=== PATIENT | male | born 1950 | race Caucasian/White ===

== ENCOUNTER 2019-03-10 09:15 | Inpatient (IN) | payer MEDICARE, OTHER ==
[~2019-03-10] VITALS: Ht 165.1 cm; Wt 69.5 kg
[~2019-03-10 09:15] MED LIST: CIPR500T4 PO; CITA20TA8 PO; CYCL10TA7 PO; HYDR-3498 PO; IBUP-1542 PO; MULT-552 PO; NAPR-985 PO; ONDA4TAB35 PO; TAMS0.4C2 PO
[2019-03-10] MEDS ORDERED: HYDROmorphONE 1 MG/ML SYG IV STA ×2 (10:03→12:53)
[2019-03-10] MEDS ORDERED: ONDANSETRON 4 MG INJ IV STA ×2 (10:03→12:53)
[2019-03-10] MEDS ORDERED: SOD CHLORIDE 0.9% 1,000 ML IV STA (10:03)
[2019-03-10] MEDS ORDERED: MORP15TA3 ORAL (11:01)
[2019-03-10] MEDS ORDERED: ACETAMINOPHEN 325 MG TAB PO PRN ×2 (14:30→17:30)
[2019-03-10] MEDS ORDERED: ONDANSETRON 4 MG INJ IV PRN (14:30)
[2019-03-10] MEDS ORDERED: HYDROmorphONE 2 MG/ML SYG IV STA (17:06)
--- NOTE | 2019-03-10 17:10 | HP ---
Date/Time of Note Date/Time of Note DATE: 03/10/19 TIME: 17:07 Assessment/Plan VTE Prophylaxis Pharmacological prophylaxis: LMWH Lines/Catheters IV Catheter Type (from Nrsg): Saline Lock Assessment/Plan Hospital Course 1. Intractable pain secondary to metastatic prostate cancer Continue home MS Contin 60 mg twice daily and will add Percocet and Dilaudid as needed Follow-up with oncologist as outpatient Prophylaxis: Lovenox Result Diagram: 03/10/19 1013 03/10/19 1013 Results 24hrs Laboratory Tests Test 03/10/19 10:13 03/10/19 10:58 White Blood Count 10.3 Red Blood Count 3.72 #L Hemoglobin 10.2 #L Hematocrit 31.7 #L Mean Corpuscular Volume 85.2 Mean Corpuscular Hemoglobin 27.4 L Mean Corpuscular Hemoglobin Concent 32.2 Red Cell Distribution Width 16.0 H Platelet Count 384 Mean Platelet Volume 9.0 Immature Granulocytes % 0.400 Neutrophils % 87.6 H Lymphocytes % 4.4 L Monocytes % 6.7 Eosinophils % 0.6 Basophils % 0.3 Nucleated Red Blood Cells % 0.0 Immature Granulocytes # 0.040 H Neutrophils # 9.0 H Lymphocytes # 0.5 L Monocytes # 0.7 Eosinophils # 0.1 Basophils # 0.0 Nucleated Red Blood Cells # 0.0 Absolute Reticulocyte Count 0.023 Percent Reticulocyte Count 0.6 Sodium Level 137 Potassium Level 4.5 Chloride Level 98 Carbon Dioxide Level 28 Anion Gap 11 Blood Urea Nitrogen 11 Creatinine 0.76 Est Glomerular Filtrat Rate mL/min > 60 Glucose Level 167 Calcium Level 10.0 Iron Level 21 L Total Iron Binding Capacity 283 Percent Iron Saturation 7 L Ferritin 139.0 Total Bilirubin 0.2 Direct Bilirubin 0.00 Indirect Bilirubin 0.2 Aspartate Amino Transf (AST/SGOT) 40 Alanine Aminotransferase (ALT/SGPT) 12 L Alkaline Phosphatase 226 H Lactate Dehydrogenase 556 Total Protein 7.5 Albumin 4.0 Globulin 3.50 H Albumin/Globulin Ratio 1.14 Prothrombin Time 14.4 Prothrombin Time Ratio 1.1 INR International Normalized Ratio 1.11 Activated Partial Thromboplast Time 38.4 H HPI/ROS Admit Date/Time Admit Date/Time March 10, 2019 Hx of Present Illness Patient is a 68-year-old male with a history of metastatic prostate cancer status post multiple rounds of therapy with no significant improvement. Patient has been told by his oncologist that they will monitor from now and potentially restart treatment in the future. Patient lives with his mom and has been nonambulatory for the past several weeks and presents with worsening diffuse body pain. Patient has been taking MS Contin 60 mg every 12 hours with no significant improvement in pain. Patient has no other complaints at this time. ROS Constitutional: no complaints, improved Eyes: no complaints ENT: no complaints Respiratory: no complaints Cardiovascular: no complaints Gastrointestinal: no complaints Genitourinary: no complaints Musculoskeletal: bone/joint pain Skin: no complaints Neurologic: no complaints Endocrine: no complaints Lymphatic: no complaints Psychological: no complaints, nl mood/affect Immunologic: no complaints PMH/Family/Social Past Medical History Metastatic prostate cancer Medications Current Medications Ondansetron HCl (Zofran Inj) 4 mg BRIDGE ORDER PRN IV NAUSEA/VOMITING; Start 03/10/19 at 14:30; Stop 03/11/19 at 14:29 Acetaminophen (Tylenol Tab) 650 mg ER BRIDGE PRN PO .MILD PAIN 1-3 OR TEMP; Start 03/10/19 at 14:30; Stop 03/11/19 at 14:29 Coded Allergies: tetracycline (Unverified Allergy, Unknown, RASH, 03/10/19) Past Surgical History Past Surgical Hx: no surgical history Family History Significant Family History: no pertinent family hx Social History Alcohol Use: rarely Smoking Status: Never smoker Drug Use: none Exam/Review of Systems Vital Signs Vitals Vital Signs Date Temp Pulse Resp B/P (MAP) Pulse Ox O2 O2 Flow FiO2 Time Delivery Rate 03/10/19 98.2 109 20 148/97 94 Room Air 15:28 (114) Exam Constitutional: alert, oriented Respiratory: clear to auscultation Cardiovascular: regular rate and rhythm Gastrointestinal: soft; No distended Musculoskeletal: nl extremities to inspection CATHY STEWART Mar 10, 2019 17:09
[2019-03-10] MEDS ORDERED: NACL 0.9% 3 ML SYG IV SCH (17:30)
[2019-03-10] MEDS ORDERED: ZOLPIDEM 5 MG TAB PO PRN (17:30)
[2019-03-10] MEDS ORDERED: OXYCODONE/ACETAMINOPHEN (10/325) TAB PO PRN (17:30)
[2019-03-10 18:02] VITALS: Ht 165.1 cm; Wt 69.5 kg
[2019-03-10 18:06] VITALS: BP 108/68; PULSE 98; RESP 17
[2019-03-10] MEDS: HYDROmorphONE 1 MG/ML SYG IV PRN (18:30)
[2019-03-10 20:26] VITALS: BP 112/68; PULSE 81; RESP 18
[2019-03-10] MEDS: morphine (ER) 30 MG TAB PO SCH (20:40)
[2019-03-10] MEDS: TAMSULOSIN (SR) 0.4 MG CAP PO SCH (20:40)
[2019-03-11] MEDS: HYDROmorphONE 1 MG/ML SYG IV PRN (00:42)
[2019-03-11] MEDS: ONDANSETRON 4 MG INJ IV PRN ×2 (00:44→21:00)
[2019-03-11] MEDS: MAGNESIUM HYDROXIDE 30ML CUP PO PRN ×2 (02:04→13:27)
[2019-03-11 02:19] VITALS: BP 109/68; PULSE 97; RESP 18
[2019-03-11 08:15] VITALS: BP 101/58; PULSE 95; RESP 18
[2019-03-11] MEDS: ENOXAPARIN 40 MG/0.4 ML SYG SC SCH (09:20)
[2019-03-11] MEDS: morphine (ER) 30 MG TAB PO SCH ×2 (09:21→21:00)
[2019-03-11] MEDS ORDERED: morphine (ER) 30 MG TAB PO SCH (13:30)
[2019-03-11 14:42] VITALS: BP 90/57; PULSE 92; RESP 18
--- NOTE | 2019-03-11 16:16 | PN ---
Date/Time of Note Date/Time of Note DATE: 03/11/19 TIME: 16:14 Assessment/Plan VTE Prophylaxis Risk score (from Nsg)>0 risk: 3 SCD applied (from Nsg): Yes Pharmacological prophylaxis: LMWH Lines/Catheters IV Catheter Type (from Nrsg): Saline Lock Assessment/Plan Hospital Course 1. Intractable pain secondary to metastatic prostate cancer Patient still with pain although improved, increase MS Contin frequency to every 8 hours Continue Percocet and Dilaudid as needed Palliative care consultation obtained manager community relations to arrange for walker and home health Continue PT Follow-up with oncologist as outpatient, patient would like to continue chemotherapy in the future Prophylaxis: Lovenox Result Diagram: 03/11/19 0621 03/11/19 0621 Results 24hrs Laboratory Tests Test 03/11/19 06:21 White Blood Count 8.9 Red Blood Count 3.32 L Hemoglobin 9.0 L Hematocrit 28.0 L Mean Corpuscular Volume 84.3 Mean Corpuscular Hemoglobin 27.1 L Mean Corpuscular Hemoglobin Concent 32.1 Red Cell Distribution Width 16.1 H Platelet Count 368 Mean Platelet Volume 9.3 Immature Granulocytes % 0.300 Neutrophils % 73.9 Lymphocytes % 10.6 L Monocytes % 12.1 H Eosinophils % 2.6 Basophils % 0.5 Nucleated Red Blood Cells % 0.0 Immature Granulocytes # 0.030 Neutrophils # 6.6 Lymphocytes # 0.9 Monocytes # 1.1 H Eosinophils # 0.2 Basophils # 0.0 Nucleated Red Blood Cells # 0.0 Sodium Level 133 L Potassium Level 4.3 Chloride Level 93 L Carbon Dioxide Level 30 Anion Gap 10 Blood Urea Nitrogen 9 Creatinine 0.66 Est Glomerular Filtrat Rate mL/min > 60 Glucose Level 107 # Calcium Level 9.3 Phosphorus Level 4.0 Magnesium Level 1.9 Subjective 24 Hr Interval Summary Musculoskeletal: bone/joint pain Exam/Review of Systems Exam Vitals Vital Signs Date Temp Pulse Resp B/P (MAP) Pulse Ox O2 O2 Flow FiO2 Time Delivery Rate 03/11/19 98.7 92 18 90/57 (68) 93 Room Air 14:42 Intake and Output 03/10/19 03/10/19 03/11/19 1515:00 23:00 07:00 IntakeIntake Total 400 ml 420 ml BalanceBalance 400 ml 420 ml Constitutional: alert, oriented Respiratory: clear to auscultation Cardiovascular: regular rate and rhythm Gastrointestinal: soft; No distended Musculoskeletal: nl extremities to inspection Results Results 24hrs Laboratory Tests Test 03/11/19 06:21 White Blood Count 8.9 Red Blood Count 3.32 L Hemoglobin 9.0 L Hematocrit 28.0 L Mean Corpuscular Volume 84.3 Mean Corpuscular Hemoglobin 27.1 L Mean Corpuscular Hemoglobin Concent 32.1 Red Cell Distribution Width 16.1 H Platelet Count 368 Mean Platelet Volume 9.3 Immature Granulocytes % 0.300 Neutrophils % 73.9 Lymphocytes % 10.6 L Monocytes % 12.1 H Eosinophils % 2.6 Basophils % 0.5 Nucleated Red Blood Cells % 0.0 Immature Granulocytes # 0.030 Neutrophils # 6.6 Lymphocytes # 0.9 Monocytes # 1.1 H Eosinophils # 0.2 Basophils # 0.0 Nucleated Red Blood Cells # 0.0 Sodium Level 133 L Potassium Level 4.3 Chloride Level 93 L Carbon Dioxide Level 30 Anion Gap 10 Blood Urea Nitrogen 9 Creatinine 0.66 Est Glomerular Filtrat Rate mL/min > 60 Glucose Level 107 # Calcium Level 9.3 Phosphorus Level 4.0 Magnesium Level 1.9 Medications Medication Current Medications IV Flush (NS 3 ml) 3 ml PER PROTOCOL IV ; Start 03/10/19 at 17:30 Ondansetron HCl (Zofran Inj) 4 mg Q6H PRN IV NAUSEA/VOMITING Last administered on 03/11/19at 00:44; Admin Dose 4 MG; Start 03/10/19 at 17:30 Acetaminophen (Tylenol Tab) 650 mg Q6H PRN PO .PAIN 1-3 OR TEMP Last administered on 03/10/19at 18:24; Admin Dose 650 MG; Start 03/10/19 at 17:30 Zolpidem Tartrate (Ambien) 5 mg QHS PRN PO .INSOMNIA; Start 03/10/19 at 17:30 Enoxaparin Sodium (Lovenox) 40 mg DAILY SC Last administered on 03/11/19at 09:20; Admin Dose 40 MG; Start 03/11/19 at 09:00 Oxycodone/ Acetaminophen (Endocet (10/ 325)) 1 tab Q4H PRN PO MODERATE PAIN LEVEL 4-6 Last administered on 03/11/19at 05:30; Admin Dose 1 TAB; Start 4/25/19 at 17:30 Hydromorphone HCl (Dilaudid) 1 mg Q4H PRN IV SEVERE PAIN LEVEL 7-10 Last administered on 03/11/19 00:42; Admin Dose 1 MG; Start 03/10/19 at 17:30 Tamsulosin HCl (Flomax) 0.4 mg HS PO Last administered on 03/10/19 20:40; Admin Dose 0.4 MG; Start 03/10/19 at 21:00 Magnesium Hydroxide (Milk Of Mag) 30 ml Q12 PRN PO CONSTIPATION Last administered on 03/11/19 13:27; Admin Dose 30 ML; Start 03/11/19 at 01:00 Morphine Sulfate (Ms Contin (Er)) 60 mg TID PO Last administered on 03/11/19 13:27; Admin Dose 60 MG; Start 03/11/19 at 13:30 CATHY STEWART Mar 11, 2019 16:16
[2019-03-11] MEDS: DEXAMETHASONE 10 MG/ML 1 ML INJ IV SCH ×2 (18:00→23:26)
[2019-03-11] MEDS ORDERED: ZOLEDRONIC ACID 4 MG in SOD CHLORIDE 0.9% 100 ML IVPB ONE (18:00)
[2019-03-11] MEDS ORDERED: HYDROmorphONE 0.2 MG/ML PCA IV SCH (18:00)
--- NOTE | 2019-03-11 18:00 | CONS ---
Assessment/Plan Assessment/Plan Assessment/Plan (Daily) Metastatic prostate cancer Metastasis to bones Malnutrition Pain [id number] Nausea vomiting possibly related to opioids Depression anxiety Because patient's pain is currently out of control it is some question whether or not oral opioids may be causing his emesis we will switch him over to [employer] Dilaudid this evening. We will give him 1 dose of 4 mg of IV Zometa start him off on nonsteroidal anti-inflammatory medications and Decadron for now anticipate tapering to p.o. medications beginning 1 to 2 days. Ideally he would be well controlled with methadone as an outpatient for bony metastasis however will discuss with Dr. Bermudez in more detail. Consultation Date/Type/Reason Admit Date/Time March 10, 2019 Date/Time of Note DATE: 03/11/19 TIME: 17:56 Hx of Present Illness This is a 68-year-old gentleman is a very poor historian who presents [facility] with a history of metastatic prostate cancer with bony mets with pain out of control. Patient describes his pain as excruciating bilat eral shoulders lumbosacral spine bilateral pelvic regions and bilateral lower extremities. Patient is been accelerating in intensity and then he is unclear as to how much morphine he was taking at home how much Lafe. However he states his pain became out of control and presented to [facility] describes his pain is 10/10 before he came to hospital he is still very uncomfortable at this time unable to ambulate without assistance. Pain is interfering with his physical functioning his mood and is sleeping pattern. Patient states he has been nauseous prior to hospitalization and vomiting during his hospitalization but is not sure whether not is from the morphine or from Per cocet. Patient denies constipation itching mental cloudiness sweating fatigue drowsiness he is not negotiating for higher dose of pain control medication. There is no history of purposeful oversedation he does not appear to be intoxicated unkempt he is uncomfortable on examination with minimal movement. He is not requesting for higher doses just reasonable control of his current pain accelerates with minimal movement. He has not asked for change in the route of administration there is no history of contact with street drugs. We have an incomplete database and so far as what chemotherapy he has been given in the past for last time he was administered chemotherapy. Constitutional: no complaints, improved Eyes: No no complaints, No pain, No discharge, No redness, No visual change, No other ENT: no complaints; No bleeding, No pain, No congestion, No discharge, No dysphagia, No sore throat, No other Respiratory: no complaints; No pain, No cough, No pleuritic pain, No shortness of breath, No sputum, No wheezing, No other Cardiovascular: no complaints; No chest pain, No edema, No lightheadedness, No orthopenea, No palpitations, No paroxysmal nocturnal dyspnea, No other Genitourinary: other (Refer to history of present illness) Musculoskeletal: other Neurologic: no complaints; No confusion, No dizziness, No focal-weakness, No headache, No syncope, No seizure, No other Psychological: anxiety, depression Past Medical History Medical History: cancer, other (History of prostate cancer with mets to the bone) Home Meds Active Scripts Ondansetron Hcl* (Zofran* ODT) 4 mg -ODT Tab.disper, 4 MG PO Q4H PRN for NAUSEA AND OR VOMITING, #20 TAB Prov:BRANDO DELCID MD 09/23/15 Reported Medications Morphine Sulfate (Morphine Sulfate ER) 15 Mg Tablet.er, 1 TAB ORAL BID 03/10/19 Multivitamins* (Once Daily*) 1 Tab Tablet, 1 TAB PO DAILY, TAB 09/23/15 Tamsulosin Hcl* (Tamsulosin Hcl*) 0.4 Mg Cap.er.24h, 0.4 MG PO HS, CAP 09/23/15 Discontinued Reported Medications Citalopram Hydrobromide* (Citalopram Hydrobromide*) 20 Mg Tablet, 20 MG PO QHS, TAB 09/23/15 Naproxen* (Naprosyn*) 500 Mg Tablet, 500 MG PO BID PRN for PAIN, TAB 09/23/15 Discontinued Scripts Cyclobenzaprine Hcl* (Cyclobenzaprine Hcl*) 10 Mg Tablet, 10 MG PO TID, #15 TAB Prov:MAHESH SOUZA DO 02/11/16 Ibuprofen* (Motrin*) 600 Mg Tab, 600 MG PO Q8, #14 TAB Prov:MAHESH SOUZA DO 02/11/16 Hydrocodone Bit-Acetaminophen* (Lafe*) 5-325 Mg Tab, 1 TAB PO Q6 PRN for PAIN, #7 TAB Prov:MAHESH SOUZA DO 02/11/16 Ciprofloxacin Hcl* (Ciprofloxacin Hcl*) 500 Mg Tablet, 500 MG PO BID for 10 Days, TAB Prov:BRANDO DELCID MD 09/23/15 Medications Current Medications IV Flush (NS 3 ml) 3 ml PER PROTOCOL IV ; Start 03/10/19 at 17:30 Ondansetron HCl (Zofran Inj) 4 mg Q6H PRN IV NAUSEA/VOMITING Last administered on 03/11/19 00:44; Admin Dose 4 MG; Start 03/10/19 at 17:30 Acetaminophen (Tylenol Tab) 650 mg Q6H PRN PO .PAIN 1-3 OR TEMP Last administered on 03/10/19 18:24; Admin Dose 650 MG; Start 03/10/19 at 17:30 Zolpidem Tartrate (Ambien) 5 mg QHS PRN PO .INSOMNIA; Start 03/10/19 at 17:30 Enoxaparin Sodium (Lovenox) 40 mg DAILY SC Last administered on 03/11/19 09:20; Admin Dose 40 MG; Start 03/11/19 at 09:00 Oxycodone/ Acetaminophen (Endocet (10/ 325)) 1 tab Q4H PRN PO MODERATE PAIN LEVEL 4-6 Last administered on 03/11/19 05:30; Admin Dose 1 TAB; Start 03/10/19 at 17:30 Hydromorphone HCl (Dilaudid) 1 mg Q4H PRN IV SEVERE PAIN LEVEL 7-10 Last administered on 03/11/19 00:42; Admin Dose 1 MG; Start 03/10/19 at 17:30 Tamsulosin HCl (Flomax) 0.4 mg HS PO Last administered on 03/10/19 20:40; Admin Dose 0.4 MG; Start 03/10/19 at 21:00 Magnesium Hydroxide (Milk Of Mag) 30 ml Q12 PRN PO CONSTIPATION Last ad ministered on 03/11/19 13:27; Admin Dose 30 ML; Start 03/11/19 at 01:00 Morphine Sulfate (Ms Contin (Er)) 60 mg TID PO Last administered on 03/11/19 13:27; Admin Dose 60 MG; Start 03/11/19 at 13:30 Allergies: Coded Allergies: tetracycline (Unverified Allergy, Unknown, RASH, 03/10/19) Past Surgical History Past Surgical Hx: no surgical history Social History Alcohol Use: rarely Smoking Status: Never smoker Drug Use: none Exam/Review of Systems Exam Vitals Vital Signs Date Temp Pulse Resp B/P (MAP) Pulse Ox O2 O2 Flow FiO2 Time Delivery Rate 03/11/19 98.7 92 18 90/57 (68) 93 Room Air 14:42 Intake and Output 03/10/19 03/10/19 03/11/19 1515:00 23:00 07:00 IntakeIntake Total 400 ml 420 ml BalanceBalance 400 ml 420 ml Constitutional: alert, oriented, well developed, distress, frail Psych: anxiety Head: normocephalic, atraumatic; No lacerations, No hematomas, No other Eyes: nl conjunctiva, EOMI, nl lids, nl sclera, PERRL; No icteric, No fundi, disc, No other ENMT: nl external ears & nose, nl lips & teeth, nl nasal mucosa & septum Neck: supple, non-tender; No jvd, No bruits, No masses, No thyromegaly, No nuchal rigidity, No other Respiratory: clear to auscultation, normal air movement; No congested cough, No crackles/rales, No diminished breath sounds, No intercostal retraction, No labored breathing, No respirations, No tactile fremitus, No wheezing, No other Cardiovascular: regular rate and rhythm, nl pulses; No bruits, No diastolic murmur, No edema, No gallop, No irregular rhythm, No jugular venous distention (JVD), No murmurs/extra sounds, No rub, No systolic murmur, No S3, No S4, No other Neurological: [employer] II-XII intact, nl mental status, nl speech, nl strength; No confused, No DTR's symmetric, No focal weakness, No lethargic, No numbness, No reflexes, No unresponsive, No other Results Result Diagram: 03/11/1962003/11/19620 Results 24hrs Laboratory Tests Test 03/11/19 06:21 White Blood Count 8.9 Red Blood Count 3.32 L Hemoglobin 9.0 L Hematocrit 28.0 L Mean Corpuscular Volume 84.3 Mean Corpuscular Hemoglobin 27.1 L Mean Corpuscular Hemoglobin Concent 32.1 Red Cell Distribution Width 16.1 H Platelet Count 368 Mean Platelet Volume 9.3 Immature Granulocytes % 0.300 Neutrophils % 73.9 Lymphocytes % 10.6 L Monocytes % 12.1 H Eosinophils % 2.6 Basophils % 0.5 Nucleated Red Blood Cells % 0.0 Immature Granulocytes # 0.030 Neutrophils # 6.6 Lymphocytes # 0.9 Monocytes # 1.1 H Eosinophils # 0.2 Basophils # 0.0 Nucleated Red Blood Cells # 0.0 Sodium Level 133 L Potassium Level 4.3 Chloride Level 93 L Carbon Dioxide Level 30 Anion Gap 10 Blood Urea Nitrogen 9 Creatinine 0.66 Est Glomerular Filtrat Rate mL/min > 60 Glucose Level 107 # Calcium Level 9.3 Phosphorus Level 4.0 Magnesium Level 1.9 Medications Medication Current Medications IV Flush (NS 3 ml) 3 ml PER PROTOCOL IV ; Start 03/10/19 at 17:30 Ondansetron HCl (Zofran Inj) 4 mg Q6H PRN IV NAUSEA/VOMITING Last administered on 03/11/19at 00:44; Admin Dose 4 MG; Start 03/10/19 at 17:30 Acetaminophen (Tylenol Tab) 650 mg Q6H PRN PO .PAIN 1-3 OR TEMP Last administered on 03/10/19 18:24; Admin Dose 650 MG; Start 03/10/19 at 17:30 Zolpidem Tartrate (Ambien) 5 mg QHS PRN PO .INSOMNIA; Start 03/10/19 at 17:30 Enoxaparin Sodium (Lovenox) 40 mg DAILY SC Last administered on 03/11/19 09:20; Admin Dose 40 MG; Start 03/11/19 at 09:00 Oxycodone/ Acetaminophen (Endocet (10/ 325)) 1 tab Q4H PRN PO MODERATE PAIN LEVEL 4-6 Last administered on 03/11/19 05:30; Admin Dose 1 TAB; Start 03/10/19 at 17:30 Hydromorphone HCl (Dilaudid) 1 mg Q4H PRN IV SEVERE PAIN LEVEL 7-10 Last administered on 03/11/19 00:42; Admin Dose 1 MG; Start 03/10/19 at 17:30 Tamsulosin HCl (Flomax) 0.4 mg HS PO Last administered on 4/25/19at 20:40; Admin Dose 0.4 MG; Start 03/10/19 at 21:00 Magnesium Hydroxide (Milk Of Mag) 30 ml Q12 PRN PO CONSTIPATION Last administered on 03/11/19at 13:27; Admin Dose 30 ML; Start 03/11/19 at 01:00 Morphine Sulfate (Ms Contin (Er)) 60 mg TID PO Last administered on 03/11/19at 13:27; Admin Dose 60 MG; Start 03/11/19 at 13:30 ELIN PATTON Mar 11, 2019 18:00
[2019-03-11] MEDS ORDERED: HYDROmorphONE 1 MG/ML SYG IV PRN (19:00)
[2019-03-11] MEDS: ACETAMINOPHEN 1000MG/100ML IV 100 ML IVPB SCH ×2 (19:03→23:34)
[2019-03-11 20:15] VITALS: BP 103/68; PULSE 101; RESP 20
[2019-03-11] MEDS ORDERED: morphine (ER) 15 MG TAB PO SCH (21:00)
[2019-03-11] MEDS: TAMSULOSIN (SR) 0.4 MG CAP PO SCH (23:15)
[2019-03-12] MEDS: ACETAMINOPHEN 1000MG/100ML IV 100 ML IVPB SCH ×2 (05:35→13:57)
[2019-03-12] MEDS: DEXAMETHASONE 10 MG/ML 1 ML INJ IV SCH ×3 (05:35→17:24)
[2019-03-12 07:55] VITALS: BP 102/64; PULSE 74; RESP 16
[2019-03-12] MEDS: morphine (ER) 30 MG TAB PO SCH ×3 (09:05→20:58)
[2019-03-12] MEDS: ONDANSETRON 4 MG INJ IV PRN (09:06)
[2019-03-12] MEDS: ENOXAPARIN 40 MG/0.4 ML SYG SC SCH (09:06)
--- NOTE | 2019-03-12 12:31 | PN ---
Date/Time of Note Date/Time of Note DATE: 03/12/19 TIME: 12:30 Assessment/Plan VTE Prophylaxis Risk score (from Nsg)>0 risk: 5 SCD applied (from Nsg): Yes Pharmacological prophylaxis: LMWH Lines/Catheters IV Catheter Type (from Nrsg): Peripheral IV Assessment/Plan Hospital Course 1. Intractable pain secondary to metastatic prostate cancer Patient still with pain although improved, increased MS Contin frequency to every 8 hours Continue Dilaudid as needed Palliative care consultation appreciated, patient started on Decadron job analysis manager to arrange for walker and home health Continue PT Follow-up with oncologist as outpatient, patient would like to continue chemotherapy in the future 2. Intractable nausea and vomiting possibly secondary to opiates Zofran as needed Monitor Prophylaxis: Lovenox DC planning: Patient not stable for DC as he continues to have nausea and vomiting Result Diagram: 03/11/1962003/11/19620 Subjective 24 Hr Interval Summary Gastrointestinal: nausea, vomiting Musculoskeletal: bone/joint pain Exam/Review of Systems Exam Vitals Vital Signs Date Temp Pulse Resp B/P (MAP) Pulse Ox O2 O2 Flow FiO2 Time Delivery Rate 03/12/19 98.2 74 16 102/64 93 07:55 (77) 03/11/19 Room Air 14:42 Intake and Output 03/11/19 03/11/19 03/12/19 1515:00 23:00 07:00 IntakeIntake Total 580 ml 300 ml 555 ml OutputOutput Total 150 ml 2 ml BalanceBalance 430 ml 300 ml 553 ml Constitutional: alert, oriented Respiratory: clear to auscultation Cardiovascular: regular rate and rhythm Gastrointestinal: soft; No distended Musculoskeletal: nl extremities to inspection Medications Medication Current Medications IV Flush (NS 3 ml) 3 ml PER PROTOCOL IV ; Start 03/10/19 at 17:30 Ondansetron HCl (Zofran Inj) 4 mg Q6H PRN IV NAUSEA/VOMITING Last administered on 03/12/19at 09:06; Admin Dose 4 MG; Start 03/10/19 at 17:30 Zolpidem Tartrate (Ambien) 5 mg QHS PRN PO .INSOMNIA; Start 03/10/19 at 17:30 Enoxaparin Sodium (Lovenox) 40 mg DAILY SC Last administered on 03/12/19at 09:06; Admin Dose 40 MG; Start 03/11/19 at 09:00 Tamsulosin HCl (Flomax) 0.4 mg HS PO Last administered on 03/11/19at 23:15; Admin Dose 0.4 MG; Start 03/10/19 at 21:00 Magnesium Hydroxide (Milk Of Mag) 30 ml Q12 PRN PO CONSTIPATION Last administered on 03/11/19at 13:27; Admin Dose 30 ML; Start 03/11/19 at 01:00 Dexamethasone (Decadron) 6 mg Q6 IV Last administered on 03/12/19 05:35; Admin Dose 6 MG; Start 03/11/19 at 18:00 Acetaminophen 100 ml @ 400 mls/hr Q6H IVPB Last administered on 03/12/19 05:35; Admin Dose 400 MLS/HR; Start 03/11/19 at 18:00; Stop 03/12/19 at 17:59 Morphine Sulfate (Ms Contin (Er)) 60 mg TID PO Last administered on 03/12/19 09:05; Admin Dose 60 MG; Start 03/11/19 at 21:00 Hydromorphone HCl (Dilaudid) 1 mg Q3H PRN IV SEVERE PAIN LEVEL 7-10 Last administered on 03/11/19 21:17; Admin Dose 1 MG; Start 03/11/19 at 19:00 CATHY STEWART Mar 12, 2019 12:31
[2019-03-12 14:30] VITALS: BP 103/72; PULSE 77; RESP 16
[2019-03-12 20:00] VITALS: BP 101/66; PULSE 70; RESP 18
[2019-03-12] MEDS: TAMSULOSIN (SR) 0.4 MG CAP PO SCH (20:58)
[2019-03-13] MEDS: DEXAMETHASONE 10 MG/ML 1 ML INJ IV SCH ×5 (00:05→23:51)
[2019-03-13] MEDS: MAGNESIUM HYDROXIDE 30ML CUP PO PRN ×2 (00:13→20:21)
[2019-03-13 02:00] VITALS: BP 103/63; PULSE 66; RESP 17
[2019-03-13 08:18] VITALS: BP 92/59; PULSE 67; RESP 16
[2019-03-13] MEDS: morphine (ER) 30 MG TAB PO SCH ×3 (09:44→20:21)
[2019-03-13] MEDS: ENOXAPARIN 40 MG/0.4 ML SYG SC SCH (09:45)
--- NOTE | 2019-03-13 13:18 | PN ---
Date/Time of Note Date/Time of Note DATE: 03/13/19 TIME: 13:15 Assessment/Plan VTE Prophylaxis Risk score (from Nsg)>0 risk: 5 SCD applied (from Nsg): Yes Pharmacological prophylaxis: LMWH Lines/Catheters IV Catheter Type (from Nrsg): Saline Lock Assessment/Plan Hospital Course 1. Intractable pain secondary to metastatic prostate cancer Patient still with pain although improved, have increased MS Contin frequency to every 8 hours Transition off Dilaudid IV, have started Percocet as needed for severe pain and Dilaudid only for breakthrough Patient will likely be discharged tomorrow with MS Contin 60 3 times daily and Percocet as needed if able to get off Dilaudid Palliative care consultation appreciated, patient started on Decadron manager occupational to arrange for walker and home health Continue PT Follow-up with oncologist as outpatient, patient would like to continue chemotherapy in the future 2. Intractable nausea and vomiting possibly secondary to opiates-improved Zofran as needed Monitor Prophylaxis: Lovenox DC planning: Attempts to wean off Dilaudid IV today, have added Percocet in wendy tion to his MS Contin, anticipate DC to home tomorrow with MS Contin 60 mg 3 times daily and Percocet Result Diagram: 03/11/19 0621 03/13/19 0540 Results 24hrs Laboratory Tests Test 03/13/19 05:40 Sodium Level 133 L Potassium Level 4.5 Chloride Level 94 L Carbon Dioxide Level 30 Anion Gap 9 Blood Urea Nitrogen 16 Creatinine 0.57 L Est Glomerular Filtrat Rate mL/min > 60 Glucose Level 151 Calcium Level 8.5 Phosphorus Level 3.2 Magnesium Level 2.7 H Subjective 24 Hr Interval Summary Musculoskeletal: bone/joint pain Exam/Review of Systems Exam Vitals Vital Signs Date Temp Pulse Resp B/P (MAP) Pulse Ox O2 O2 Flow FiO2 Time Delivery Rate 03/13/19 97.6 67 16 92/59 (70) 97 08:18 03/11/19 Room Air 14:42 Intake and Output 03/12/19 03/12/19 03/13/19 1515:00 23:00 07:00 IntakeIntake Total 100 ml 900 ml 240 ml OutputOutput Total 501 ml 500 ml BalanceBalance 100 ml 399 ml -260 ml Constitutional: alert, oriented Respiratory: clear to auscultation Cardiovascular: regular rate and rhythm Gastrointestinal: soft; No distended Musculoskeletal: nl extremities to inspection Results Results 24hrs Laboratory Tests Test 03/13/19 05:40 Sodium Level 133 L Potassium Level 4.5 Chloride Level 94 L Carbon Dioxide Level 30 Anion Gap 9 Blood Urea Nitrogen 16 Creatinine 0.57 L Est Glomerular Filtrat Rate mL/min > 60 Glucose Level 151 Calcium Level 8.5 Phosphorus Level 3.2 Magnesium Level 2.7 H Medications Medication Current Medications IV Flush (NS 3 ml) 3 ml PER PROTOCOL IV ; Start 03/10/19 at 17:30 Ondansetron HCl (Zofran Inj) 4 mg Q6H PRN IV NAUSEA/VOMITING Last administered on 03/12/19 09:06; Admin Dose 4 MG; Start 03/10/19 at 17:30 Zolpidem Tartrate (Ambien) 5 mg QHS PRN PO .INSOMNIA Last administered on 03/13/19 00:05; Admin Dose 5 MG; Start 03/10/19 at 17:30 Enoxaparin Sodium (Lovenox) 40 mg DAILY SC Last administered on 03/13/19 09:45; Admin Dose 40 MG; Start 03/11/19 at 09:00 Tamsulosin HCl (Flomax) 0.4 mg HS PO Last administered on 03/12/19 20:58; Admin Dose 0.4 MG; Start 03/10/19 at 21:00 Magnesium Hydroxide (Milk Of Mag) 30 ml Q12 PRN PO CONSTIPATION Last administered on 03/13/19 00:13; Admin Dose 30 ML; Start 03/11/19 at 01:00 Dexamethasone (Decadron) 6 mg Q6 IV Last administered on 03/13/19 05:38; Admin Dose 6 MG; Start 03/11/19 at 18:00 Morphine Sulfate (Ms Contin (Er)) 60 mg TID PO Last administered on 03/13/19 09:44; Admin Dose 60 MG; Start 03/11/19 at 21:00 Hydromorphone HCl (Dilaudid) 1 mg Q3H PRN IV SEVERE PAIN LEVEL 7-10 Last administered on 03/11/19 21:17; Admin Dose 1 MG; Start 03/11/19 at 19:00 CATHY STEWART Mar 13, 2019 13:18
[2019-03-13] MEDS ORDERED: HYDROmorphONE 1 MG/ML SYG IV PRN (13:30)
[2019-03-13] MEDS ORDERED: OXYCODONE/ACETAMINOPHEN (5/325) TAB PO PRN (13:30)
[2019-03-13 14:30] VITALS: BP 101/67; PULSE 73; RESP 16
[2019-03-13 20:00] VITALS: BP 97/64; PULSE 71; RESP 17
[2019-03-13] MEDS: TAMSULOSIN (SR) 0.4 MG CAP PO SCH (20:21)
[2019-03-14 02:00] VITALS: BP 101/65; PULSE 64; RESP 17
[2019-03-14] MEDS: DEXAMETHASONE 10 MG/ML 1 ML INJ IV SCH ×3 (05:36→18:06)
[2019-03-14 08:33] VITALS: BP 115/70; PULSE 68; RESP 18
[2019-03-14] MEDS: morphine (ER) 30 MG TAB PO SCH ×3 (08:39→20:31)
[2019-03-14] MEDS: ENOXAPARIN 40 MG/0.4 ML SYG SC SCH (08:40)
[2019-03-14 15:04] VITALS: BP 102/57; PULSE 74; RESP 19
--- NOTE | 2019-03-14 15:52 | PN ---
Date/Time of Note Date/Time of Note DATE: 03/14/19 TIME: 15:47 Assessment/Plan VTE Prophylaxis Risk score (from Nsg)>0 risk: 5 SCD applied (from Nsg): Yes Pharmacological prophylaxis: heparin Lines/Catheters IV Catheter Type (from Nrsg): Saline Lock Assessment/Plan Hospital Course 68 yo male with metastatic prostate cancer admitted for pain control - pain controlled on current regimen - dc home tomorrow with PO meds Rx Result Diagram: 03/11/19 0621 03/13/19 0540 Subjective 24 Hr Interval Summary Free Text/Dictation Pain is controlled Offered discharge but he is not wanting to go home yet Exam/Review of Systems Exam Vitals Vital Signs Date Temp Pulse Resp B/P (MAP) Pulse Ox O2 O2 Flow FiO2 Time Delivery Rate 03/14/19 96.8 74 19 102/57 92 15:04 (72) 03/11/19 Room Air 14:42 Intake and Output 03/13/19 03/13/19 03/14/19 1515:00 23:00 07:00 IntakeIntake Total 1480 ml 200 ml 700 ml OutputOutput Total 700 ml BalanceBalance 1480 ml 200 ml 0 ml Medications Medication Current Medications IV Flush (NS 3 ml) 3 ml PER PROTOCOL IV ; Start 03/10/19 at 17:30 Ondansetron HCl (Zofran Inj) 4 mg Q6H PRN IV NAUSEA/VOMITING Last administered on 03/12/19 09:06; Admin Dose 4 MG; Start 03/10/19 at 17:30 Zolpidem Tartrate (Ambien) 5 mg QHS PRN PO .INSOMNIA Last administered on 03/13/19at 00:05; Admin Dose 5 MG; Start 03/10/19 at 17:30 Enoxaparin Sodium (Lovenox) 40 mg DAILY SC Last administered on 03/14/19 08:40; Admin Dose 40 MG; Start 03/11/19 at 09:00 Tamsulosin HCl (Flomax) 0.4 mg HS PO Last administered on 03/13/19 20:21; Admin Dose 0.4 MG; Start 03/10/19 at 21:00 Magnesium Hydroxide (Milk Of Mag) 30 ml Q12 PRN PO CONSTIPATION Last administered on 03/13/19 20:21; Admin Dose 30 ML; Start 03/11/19 at 01:00 Dexamethasone (Decadron) 6 mg Q6 IV Last administered on 03/14/19at 11:47; Admin Dose 6 MG; Start 03/11/19 at 18:00 Morphine Sulfate (Ms Contin (Er)) 60 mg TID PO Last administered on 03/14/19at 12:31; Admin Dose 60 MG; Start 03/11/19 at 21:00 Hydromorphone HCl (Dilaudid) 1 mg Q4 PRN IV BREAKTHROUGH PAIN; Start 03/13/19 at 13:30 Oxycodone/ Acetaminophen (Percocet (5/ 325)) 1 tab Q4H PRN PO MODERATE PAIN LEVEL 4-6; Start 03/13/19 at 13:30 HERLINDA MAURICE MD Mar 14, 2019 15:52
[2019-03-14] MEDS: MAGNESIUM HYDROXIDE 30ML CUP PO PRN (16:34)
[2019-03-14] MEDS: TAMSULOSIN (SR) 0.4 MG CAP PO SCH (20:31)
[2019-03-14 20:36] VITALS: BP 112/71; PULSE 63; RESP 16
[2019-03-15] MEDS: DEXAMETHASONE 10 MG/ML 1 ML INJ IV SCH ×3 (01:19→12:44)
[2019-03-15 02:08] VITALS: BP 114/72; PULSE 59; RESP 16
[2019-03-15 08:26] VITALS: BP 118/77; PULSE 65; RESP 18
[2019-03-15] MEDS: morphine (ER) 30 MG TAB PO SCH ×2 (09:30→12:44)
[2019-03-15] MEDS: MAGNESIUM HYDROXIDE 30ML CUP PO PRN (09:30)
[2019-03-15] MEDS: ENOXAPARIN 40 MG/0.4 ML SYG SC SCH (09:31)
--- NOTE | 2019-03-15 14:23 | DS ---
Date/Time of Note Date/Time of Note DATE: 03/15/19 TIME: 14:22 Discharge Summary Admission/Discharge Info Admit Date/Time Mar 12, 2019 at 12:29 Discharge Date/Time Discharge Diagnosis Metastatic prostate cancer Patient Condition: Stable Hospital Course 68 yo male with metastatic prostate cancer admitted for pain control - pain controlled with PO MS Contin - Dexamethasone was given - He was discharged on MS Contin and 7 days of prednisone. He will follow up with his oncologist at [facility] Meds Reported Medications Tamsulosin Hcl* (Tamsulosin Hcl*) 0.4 Mg Cap.er.24h, 0.4 MG PO HS, CAP 09/23/15 Discontinued Reported Medications Morphine Sulfate (Morphine Sulfate ER) 15 Mg Tablet.er, 1 TAB ORAL BID 03/10/19 Multivitamins* (Once Daily*) 1 Tab Tablet, 1 TAB PO DAILY, TAB 09/23/15 Citalopram Hydrobromide* (Citalopram Hydrobromide*) 20 Mg Tablet, 20 MG PO QHS, TAB 09/23/15 Naproxen* (Naprosyn*) 500 Mg Tablet, 500 MG PO BID PRN for PAIN, TAB 09/23/15 Discontinued Scripts Ondansetron Hcl* (Zofran* ODT) 4 mg -ODT Tab.disper, 4 MG PO Q4H PRN for NAUSEA AND OR VOMITING, #20 TAB Prov:BRANDO DELCID MD 09/23/15 Cyclobenzaprine Hcl* (Cyclobenzaprine Hcl*) 10 Mg Tablet, 10 MG PO TID, #15 TAB Prov:MAHESH SOUZA DO 02/11/16 Ibuprofen* (Motrin*) 600 Mg Tab, 600 MG PO Q8, #14 TAB Prov:MAHESH SOUZA DO 02/11/16 Hydrocodone Bit-Acetaminophen* ([place]*) 5-325 Mg Tab, 1 TAB PO Q6 PRN for PAIN, #7 TAB Prov:MAHESH SOUZA DO 02/11/16 Ciprofloxacin Hcl* (Ciprofloxacin Hcl*) 500 Mg Tablet, 500 MG PO BID for 10 Days, TAB Prov:BRANDO DELCID MD 09/23/15 Primary Care Provider Not On Staff Doctor HERLINDA MAURICE MD Mar 15, 2019 14:23
--- NOTE | 2019-03-21 06:14 | ERD ---
ER Documentation Chief Complaint Chief Complaint GENERALIZED PAIN, TAKES MORPHINE AT HOME DIDN'T TAKE ANY SINCE LAST NIGHT HPI This is a 68-year-old male who presented to the emergency department with generalized pain and weakness. The patient has a history of metastatic prostate carcinoma. Indicates that he normally takes morphine at home. Indicates however he has not taken morphine for the past 12 hours as he ran out of his medications. He has had a decrease in appetite. He denies any abdominal pain. He has no chest pain. He has no shortness of breath at rest or exertion. He denies any hemoptysis hematemesis or melanotic stools. He denies any shortness of breath at rest or exertion ROS All systems reviewed and are negative except as per history of present illness. Medications Home Meds Reported Medications Tamsulosin Hcl* (Tamsulosin Hcl*) 0.4 Mg Cap.er.24h, 0.4 MG PO HS, CAP 09/23/15 Discontinued Reported Medications Morphine Sulfate (Morphine Sulfate ER) 15 Mg Tablet.er, 1 TAB ORAL BID 03/10/19 Multivitamins* (Once Daily*) 1 Tab Tablet, 1 TAB PO DAILY, TAB 09/23/15 Discontinued Scripts Ondansetron Hcl* (Zofran* ODT) 4 mg -ODT Tab.disper, 4 MG PO Q4H PRN for NAUSEA AND OR VOMITING, #20 TAB Prov:BRANDO DELCID MD 09/23/15 Allergies Allergies: Coded Allergies: tetracycline (Unverified Allergy, Unknown, RASH, 03/10/19) PMhx/Soc History of Surgery: No Anesthesia Reaction: No Hx Neurological Disorder: No Hx Respiratory Disorders: No Hx Cardiac Disorders: No (High Cholestrol) Hx Psychiatric Problems: No Hx Miscellaneous Medical Probl: No Hx Alcohol Use: No Hx Substance Use: No Hx Tobacco Use: No Smoking Status: Never smoker Physical Exam Physical Exam Constitutional:Well-developed. Well-nourished. HEENT:Normocephalic. Atraumatic.Pupils were equal round reactive to light. Moist mucous membranes.No tonsillar exudates. Conjunctival pallor Neck: No nuchal rigidity. No lymphadenopathy. No posterior cervical spine tenderness or step-offs. Respiratory: Not using accessory muscles of respiration.Lungs were clear to auscultation bilaterally. No rhonchi. No rales. No wheezing. Cardiovascular: Regular rate regular rhythm.No murmurs. No rubs were appreciated.S1, S2 normal. Distal pulses are palpable 2+ bilaterally. GI: Abdomen was soft. Nontender. Non Distended. No pulsatile abdominal masses or bruits. No rebound. No guarding. Bowel sounds were present and normal. Muscle skeletal: Full range of motion of both the upper and lower extremities bilaterally.Normal muscle tone.No assymetrical calf tenderness or swelling. Skin: Diffuse pallor. No petechia, no purpura. No lesions on the palms or the soles of the feet. No maculopapular rash. NEURO: Patient was alert, awake, orientated x3.No facial droop. Gait observed and normal with no ataxia.Speech had regular rate and rhythm. No focal neurological deficits. Results 24 hrs Laboratory Tests Test 03/10/19 10:13 03/10/19 10:58 White Blood Count 10.3 10^3/ul Red Blood Count 3.72 10^6/ul Hemoglobin 10.2 g/dl Hematocrit 31.7 % Mean Corpuscular Volume 85.2 fl Mean Corpuscular Hemoglobin 27.4 pg Mean Corpuscular Hemoglobin Concent 32.2 g/dl Red Cell Distribution Width 16.0 % Platelet Count 384 10^3/UL Mean Platelet Volume 9.0 fl Immature Granulocytes % 0.400 % Neutrophils % 87.6 % Lymphocytes % 4.4 % Monocytes % 6.7 % Eosinophils % 0.6 % Basophils % 0.3 % Nucleated Red Blood Cells % 0.0 /100WBC Immature Granulocytes # 0.040 10^3/ul Neutrophils # 9.0 10^3/ul Lymphocytes # 0.5 10^3/ul Monocytes # 0.7 10^3/ul Eosinophils # 0.1 10^3/ul Basophils # 0.0 10^3/ul Nucleated Red Blood Cells # 0.0 10^3/ul Absolute Reticulocyte Count 0.023 X10^6 Percent Reticulocyte Count 0.6 % Sodium Level 137 mmol/L Potassium Level 4.5 mmol/L Chloride Level 98 mmol/L Carbon Dioxide Level 28 mmol/L Anion Gap 11 Blood Urea Nitrogen 11 mg/dl Creatinine 0.76 mg/dl Est Glomerular Filtrat Rate mL/min > 60 mL/min Glucose Level 167 mg/dl Calcium Level 10.0 mg/dl Iron Level 21 ug/dl Total Iron Binding Capacity 283 ug/dl Percent Iron Saturation 7 % SAT Ferritin 139.0 ng/ml Total Bilirubin 0.2 mg/dl Direct Bilirubin 0.00 mg/dl Indirect Bilirubin 0.2 mg/dl Aspartate Amino Transf (AST/SGOT) 40 IU/L Alanine Aminotransferase (ALT/SGPT) 12 IU/L Alkaline Phosphatase 226 IU/L Lactate Dehydrogenase 556 IU/L Total Protein 7.5 g/dl Albumin 4.0 g/dl Globulin 3.50 g/dl Albumin/Globulin Ratio 1.14 Prothrombin Time 14.4 Sec Prothrombin Time Ratio 1.1 INR International Normalized Ratio 1.11 Activated Partial Thromboplast Time 38.4 Sec Transferrin 190 mg/dL Current Medications Medications Dose Sig/Kendall Start Time Status Last (Trade) Ordered Route PRN Stop Time Admin Dose Reason Admin Sodium 1,000 ml @ Q1H STAT 03/10/19 DC 03/10/19 Chloride 1,000 mls/hr IV 10:03 10:36 03/10/19 11:02 1 mg ONCE STAT 03/10/19 DC 03/10/19 Hydromorphone IV 10:03 10:37 HCl 03/10/19 10:08 (Dilaudid) Ondansetron 4 mg ONCE STAT 03/10/19 DC 03/10/19 HCl (Zofran IV 10:03 10:37 Inj) 03/10/19 10:08 1 mg ONCE STAT 03/10/19 DC 03/10/19 Hydromorphone IV 12:53 13:00 HCl 03/10/19 12:54 (Dilaudid) Ondansetron 4 mg ONCE STAT 03/10/19 DC HCl (Zofran IV 12:53 Inj) 03/10/19 12:54 Procedures/MDM This 68-year-old male with a history of metastatic prostate cancer. The patient was placed on a air sampling and monitoring continuous pulse oximetry and IV access was established by nursing staff. The patient had diffuse pallor however the patient's hemoglobin was 10.2. The patient was typed and crossed. The patient received intravenous morphine and Zofran but his pain had not improved. I obtained a chest radiograph reviewed by the radiologist myself and indicate the followin. The cardiovascular silhouette is stable and unremarkable. 2. Increasing discoid atelectasis within the right lower lung zone and persistent discoid atelectasis in the left lower lung zone. No effusion or pneumothorax is evident. 3. Increased sclerosis is again noted within the proximal left humerus for which blastic metastasis cannot be excluded. Observation Note: Time: 4 hours Family Hx: No Hypertension Evaluation: Multiple exams showed improving symptoms and no evidence of improvement of his symptoms. He still appeared to be in pain. I felt this is a result of his metastatic prostate cancer and therefore the patient will be adm itted for intractable pain. He will be admitted to the hospitalist Dr. Mckeon. Departure Diagnosis: Primary Impression: Pain Additional Impression: Prostate cancer metastatic to bone Condition: Serious Patient Instructions: Living With Prostate Cancer BRANDO DELCID MD March 21, 2019 06:14
== END 2019-03-15 14:32 | disposition home or self-care (01) | DRG 948 ==
LOC: E/R 09:15 → PP2 14:21 → OBSVTOIN 03-12 12:29
PROVIDERS: ADMIT Internal Medicine; ATTEND Internal Medicine
DX: G89.3 Neoplasm related pain (acute) (chronic) (principal); C79.51 Secondary malignant neoplasm of bone; E46 Unspecified protein-calorie malnutrition; C61 Malignant neoplasm of prostate; Z68.25 Body mass index [BMI] 25.0-25.9, adult; R11.2 Nausea with vomiting, unspecified; T40.605A Adverse effect of unspecified narcotics, initial encounter
CPT/HCPCS: 71045; 80048; 80053; 82728; 83540; 83615; 83735; 84100; 84466; 85025; 85045; 85610; 85730; 86850; 86900; 86901; 93005; 97110; 97116; 97163; 97530; G0378; J0131; J1100; J1170; J1650; J2405; J3489; J7030